=== PATIENT | female | born 1940 | race Caucasian/White ===

== ENCOUNTER → 2017-02-05 | Outpatient (CLI) | payer MEDICARE ==
[~2017-02-05] MED LIST: ALBU18HF PO; ALBU8.5H8 PO; ALBUTEROL SULFATE PO; ASPI81TA50 PO; CETI1TAB6 PO; CLOB15CR19 TP; HYDR25TA6 PO; LOSA100T6 PO; MULT1TAB9 PO; OMEG1CAP6 PO; OSCAL PO; PRAV10TA2 PO; VIT1TABL32 PO; VITAMIN C PO; VITAMIN D PO; VITAMIN E PO
== END | disposition home or self-care (01) ==
LOC: CFH 11:02
PROVIDERS: ATTEND Nurse Practitioner Family
DX: Z13.820 Encounter for screening for osteoporosis (principal); M85.88 Other specified disorders of bone density and structure, other site
CPT/HCPCS: 77080